=== PATIENT | female | born 1945 | race Caucasian/White ===

== ENCOUNTER 2020-06-08 14:36 | Outpatient (CLI) | payer MEDICARE ==
--- NOTE | 2020-06-09 09:00 | DEXA Report ---
PROCEDURE: Dexa Spine and/or Hip INDICATIONS: POSTMENOPAUSAL TECHNIQUE: Dual energy x-ray absorptiometry (DXA) was performed on a [employer] System. Regions measur ed are the AP Spine, femoral neck, and if needed forearm. COMPARISON: None. FINDINGS: Lumbar Spine: Bone Mineral Density 0.942 g/cm/cm,T score -2.0, osteopenia Left Hip: Bone Mineral Density 0.826 g/cm/cm,T score -1.4, osteopenia Left Femoral Neck: Bone Mineral Density 0.828 g/cm/cm, T score -1.4, osteopenia (T score greater or equal to -1.0: NORMAL) (T score from -1.1 to -2.4: OSTEOPENIA) (T score less than or equal to -2.5 to: OSTEOPOROSIS) Impression: Osteopenia as above most prominent in the lumbar spine. Patients with diagnosis of osteoporosis or osteopenia should have regular bone mineral density assess ment. For those eligible for Medicare, routine testing is allowed once every 2 years. Testing frequ ency can be increased for patients who have rapidly progressing disease or for those who are receivin g medical therapy to restore bone mass. Reviewed by: Clara Dyson MD on 06/08/2020 4:39 PM PDT Approved by: Clara Dyson MD on 06/08/2020 4:39 PM PDT Station ID: [id number]
== END 2020-06-08 14:37 | disposition home or self-care (01) ==
LOC: DI 14:36
PROVIDERS: ATTEND Physician Assistant Medical
DX: M85.89 Other specified disorders of bone density and structure, multiple sites (principal); Z78.0 Asymptomatic menopausal state
CPT/HCPCS: 77080

== ENCOUNTER 2020-11-10 19:56 | Outpatient (CLI) | payer MEDICARE | END 2020-11-10 19:57 | disposition home or self-care (01) | LOC: COV 19:56 | PROVIDERS: ATTEND Ophthalmology | DX: Z01.812 Encounter for preprocedural laboratory examination (principal); Z20.822 Contact with and (suspected) exposure to COVID-19; H25.12 Age-related nuclear cataract, left eye ==

== ENCOUNTER 2020-11-16 09:21 | Day surgery (SDC) | payer MEDICARE ==
[~2020-11-16 09:21] MED LIST: KETOROLAC 0.45% OPHTH DROPS ONE; PHENYLEPHRINE 2.5% OPHTH 2 ML DROPS ONE; PROPARACAINE 0.5% OPHTH DROPS 15 ML ONE
[2020-11-16] MEDS ORDERED: LACTATED RINGERS 500 ML IV ONE (09:53)
[2020-11-16] MEDS ORDERED: MIDAZOLAM 2 MG/2 ML VIAL ONE (10:59)
--- NOTE | 2020-11-16 11:02 | ANESTHESIA ---
Pre-Anesthesia VS, & Labs - Diagnosis L cataract - Procedure L PhacoIOL Vital Signs: Temp Pulse Resp BP Pulse Ox 36.6 C 81 16 135/82 H 100 11/16/20 09:45 11/16/20 09:45 11/16/20 09:45 11/16/20 09:45 11/16/20 09:45 Height: 5 ft 2 in Weight (kg): 79 kg Body Mass Index: 31.8 BMI Classification: Obese - NPO >8 hours - Is Patient ?: No Home Medications and Allergies Home Medications: Ambulatory Orders Dabigatran [Pradaxa] 75 mg PO BID 11/15/20 Dabigatran [Pradaxa] 75 mg PO BID 11/15/20 Allergies/Adverse Reactions: Allergies Allergy/AdvReac Type Severity Reaction Status Date / Time No Known Drug Allergies Allergy Verified 11/15/20 15:51 Anes History & Medical History - Anesthetic History Family history of Anesthesia Complications: Denies Family history of Malignant Hyperthermia: Denies - Medical History Cardiovascular: reports: Atrial fibrillation Pulmonary: reports: None Gastrointestinal: reports: None Urinary: reports: None Musculoskeletal: reports: None Endocrine/Autoimmune: reports: None Skin: reports: Eczema History of Cancer?: No - Surgical History Eyes Ears Nose Throat (EENT): Tonsil/Adenoidectomy Gynecologic: section Orthopedic: Other Exam Mouth Openin Fingerbreadth Mallampati classification: III Thyromental Distance: 4-6 cm Respiratory: Lungs clear Cardiovascular: Other (AFib) Abdomen: Normal bowel sounds Extremities: No clubbing Neurological: Normal gait Mental/Cognitive Status: Alert/Oriented X3 Cognitive Status: Within normal limits Plan Anesthesia Type: MAC Consent for Procedure(s) Verified and Reviewed: Yes Code Status: Attempt Resuscitation ASA classification: 2-Mild systemic disease Is this case an emergency?: No
[2020-11-16] MEDS ORDERED: TIMOLOL 0.5% OPHTH DROPS OPTH ONE (11:10)
[2020-11-16] MEDS ORDERED: CHONDR SULF/HYALURONATE SYRINGE IO ONE (11:10)
[2020-11-16] MEDS ORDERED: BSS/LIDOCAINE/EPINEPHRINE 1 ML SYRINGE IO ONE (11:10)
[2020-11-16] MEDS ORDERED: TRIAMCIN/MOXIFLOX OPHTHALMIC 0.6 ML VIAL IO ONE ×3 (11:10→13:29)
[2020-11-16] MEDS ORDERED: BRIMONIDINE 0.2% OPHTH DROPS 5 ML OPTH ONE (11:10)
[2020-11-16] MEDS ORDERED: EPINEPHrine 1 MG/ML AMP IR ONE (11:10)
[2020-11-16] MEDS ORDERED: PROPARACAINE 0.5% OPHTH DROPS 15 ML EACHEYE ONE (11:11)
[2020-11-16] MEDS ORDERED: VANCOMYCIN OPHTHALMI 8MG/0.8ML 8 MG/0.8 ML SYRINGE IO ONE ×3 (11:11→13:29)
[2020-11-16] MEDS ORDERED: LACTATED RINGERS 450 ML IV ONE (11:20)
[2020-11-16 11:25] VITALS: BP 116/68
--- NOTE | 2020-11-16 11:51 | OPERATIVE REPORT ---
DATE OF SERVICE: 11/16/2020 Physician: Alexis Wang MD PREOPERATIVE DIAGNOSIS: Visually significant cataract, left eye. This was her first cataract surger y. POSTOPERATIVE DIAGNOSIS: Visually significant cataract, left eye. This was her first cataract surge ry. PROCEDURE: Phacoemulsification with posterior chamber intraocular lens implant, left eye. SURGEON: Alexis Wang MD. ANESTHESIA: Monitored anesthesia care. COMPLICATIONS: None. OPERATIVE INDICATIONS: This is a 75-year-old woman with progressive vision loss in the left eye due to 2+ to 3+ nuclear sclerotic cataract. Best corrected visual acuity was 20/30 with glare to hand mo tion vision in the left eye. Indications for surgery are overall decrease in vision, difficulty seei ng words on a computer screen, difficulty reading, difficulty seeing words, closed caption or game sc ores on TV, difficulty seeing street signs, difficulty driving in low light or at night, difficulty d riving at night because of headlights from other vehicles, difficulty with glare or bright lights in any situation. She was consented at length concerning risks and benefits of cataract surgery, after which she expressed a desire to proceed with surgery. OPERATIVE PROCEDURE: The patient was taken in to OR #3 and placed under monitored anesthesia care. A surgical timeout was conducted, confirming correct patient, correct procedure, and correct surgical site. She was given topical anesthesia and prepped and draped in the usual sterile fashion. The ey e was entered at the 6 and 3 o'clock positions. Intracameral Shugarcaine was injected into the anter ior chamber followed by Viscoat. A continuous-tear curvilinear capsulorrhexis was performed. The nu cleus was hydrodissected and phacoemulsified. The cortex was evacuated using automated infusion and aspiration. Provisc was injected in the capsular bag and a 16.0 diopter intraocular lens inserted in to the bag. Infusion and aspiration were used to evacuate the viscoelastic materials. The eye was i nflated to physiologic pressure using balanced salt solution and found to be watertight. Approximate ly 0.25 mL of a mixture of triamcinolone and moxifloxacin was injected transsclerally into the vitreo us in the inferotemporal quadrant. An additional 0.55 mL of a mixture of triamcinolone, moxifloxacin , and vancomycin was injected subconjunctivally in the superior quadrant for infection and inflammati on prophylaxis. Wound integrity was checked with Weck-Verónica sponges. The patient was taken from the o perating room in good condition and given postoperative instructions. TD: 11/16/2020 11:31
[2020-11-16] MEDS ORDERED: BRIMONIDINE 0.2% OPHTH DROPS 5 ML ONE ×2 (13:28→13:29)
[2020-11-16] MEDS ORDERED: BSS/LIDOCAINE/EPINEPHRINE 1 ML SYRINGE ONE ×2 (13:28→13:29)
[2020-11-16] MEDS ORDERED: TIMOLOL 0.5% OPHTH DROPS ONE ×2 (13:28→13:29)
[2020-11-16] MEDS ORDERED: EPINEPHrine 1 MG/ML AMP ONE ×2 (13:28→13:29)
== END 2020-11-16 09:22 | disposition home or self-care (01) ==
LOC: SDS 09:21
PROVIDERS: ATTEND Ophthalmology
DX: H25.12 Age-related nuclear cataract, left eye (principal); I48.91 Unspecified atrial fibrillation; E66.9 Obesity, unspecified; Z68.31 Body mass index [BMI] 31.0-31.9, adult; Z86.73 Personal history of transient ischemic attack (TIA), and cerebral infarction without residual deficits
CPT/HCPCS: 66984; A9270; J3490; J7120; V2632

== ENCOUNTER 2020-11-17 23:25 | Emergency (ER) | payer MEDICARE ==
[2020-11-17] MEDS ORDERED: CEPHALEXIN 250 MG Prepack 8 CAP BOTTLE PO STA (23:54)
[2020-11-17] MEDS ORDERED: cephALEXin 250 MG CAPSULE PO STA (23:54)
--- NOTE | 2020-11-17 23:56 | ED Physician Documentation ---
History of Present Illness - Stated complaint Stated Complaint: FACIAL REDNESS - Chief complaint Chief Complaint: Heent - History obtained from History obtained from: Patient - History of Present Illness Timing: Today - Additonal information Additional information: 75-year-old female has had a cataract operation done yesterday the operation went well this morning she had a bit of a film over her eyes she was able to see after that has some improvement in her vision. She is noted this evening that she has some redness to the left side of her face where the operation was done and there is a bit of swelling associated with this and she is concerned about a possible infection. I did note from the surgeon's notes that she was given an injection of moxifloxacin and vancomycin during the procedure. Review of Systems Constitutional: denies: Fever Eyes: denies: Loss of vision, Decreased vision, Discharge, Irritation Ears: denies: Ear pain Nose: denies: Congestion Throat: denies: Sore throat Respiratory: denies: Dyspnea, Cough GI: denies: Nausea, Vomiting : denies: Dysuria, Frequency PD PAST MEDICAL HISTORY - Present Medications Home Medications: Ambulatory Orders Medication Instructions Recorded Confirmed Dabigatran [Pradaxa] 75 mg PO BID 11/15/20 11/16/20 cephALEXin [Keflex] 500 mg PO Q6H #28 capsule 11/18/20 - Allergies Allergies/Adverse Reactions: Allergies Allergy/AdvReac Type Severity Reaction Status Date / Time No Known Drug Allergies Allergy Verified 11/15/20 15:51 PD ED PE NORMAL - Vitals Vital signs reviewed: Yes (hypertensive ) - General General: Alert and oriented X 3, No acute distress, Well developed/nourished - HEENT HEENT: Atraumatic, PERRL, EOMI, Other (There is erythema and swelling from the nasal bridge to just above the nasal labial fold on the left side the swelling and redness extends across the cheek and is mild there is some slight lichenification of the skin overlying the erythema. The inflammation appears as a superficial infection. ) - Neck Neck: Supple, no meningeal sign, No bony TTP - Respiratory Respiratory: No respiratory distress - Derm Derm: Normal color, Warm and dry - Extremities Extremities: No deformity, No edema - Neuro Neuro: Alert and oriented X 3, cuff knitter 2-12 intact, No motor deficit, No sensory deficit, Normal speech Eye Opening: Spontaneous Motor: Obeys Commands Verbal: Oriented GCS Score: 15 - Psych Psych: Normal mood, Normal affect PD ED PE EXPANDED - Eyes Eyes: Other (There is not excessive swelling to the eyelid and the sclera itself appears unaffected.) Results - Vitals Vitals: Vital Signs - 24 hr 11/17/20 23:36 Temperature 36.3 C L Heart Rate 87 Respiratory 19 Rate Blood Pressure 141/85 H O2 Saturation 98 Oxygen O2 Source Room air PD MEDICAL DECISION MAKING - ED course Complexity details: reviewed old records, re-evaluated patient, considered differential, d/w patient ED course: 75-year-old previously well female has developed some swelling and redness to the left side of her face where she has had a procedure done yesterday. The area of the procedure itself does not appear inflamed or infected her face appears mildly inflamed or infected and we have elected to treat with oral Keflex. I was unable to contact the surgeon after hours and I have asked the patient to follow-up by telephone tomorrow. Departure - Departure Disposition: 01 Home, Self Care Clinical Impression: Facial cellulitis Condition: Stable Instructions: ED Cellulitis Facial Follow-Up: Dorita Mittal PA-C [Primary Care Provider] - Alexis Wang MD [Provider Admit Priv/Credential] - Prescriptions: cephALEXin [Keflex] 500 mg PO Q6H #28 capsule
[2020-11-18 00:11] VITALS: BP 138/83
== END 2020-11-18 00:11 | disposition home or self-care (01) ==
LOC: ED 23:25
DX: L03.211 Cellulitis of face (principal); Z98.49 Cataract extraction status, unspecified eye
CPT/HCPCS: 99282; 99284; A9270

== ENCOUNTER 2021-01-08 16:40 | Outpatient (CLI) | payer MEDICARE | END 2021-01-08 16:41 | disposition home or self-care (01) | LOC: COV 16:40 | PROVIDERS: ATTEND Ophthalmology | DX: Z01.812 Encounter for preprocedural laboratory examination (principal); H25.11 Age-related nuclear cataract, right eye; Z20.822 Contact with and (suspected) exposure to COVID-19 ==

== ENCOUNTER 2021-01-11 09:12 | Day surgery (SDC) | payer MEDICARE ==
[2021-01-11] MEDS ORDERED: LACTATED RINGERS 500 ML IV ONE ×2 (09:22→10:18)
[2021-01-11] MEDS ORDERED: CYCLOPENTOLATE 2% OPHTH DROPS 2 ML RIGHTEYE ONE (09:23)
[2021-01-11] MEDS ORDERED: MIDAZOLAM 2 MG/2 ML VIAL ONE (09:54)
--- NOTE | 2021-01-11 09:57 | ANESTHESIA ---
Pre-Anesthesia VS, & Labs - Diagnosis right eye cataract - Procedure right eye cataract extraction with IOL implant Vital Signs: Temp Pulse Resp BP Pulse Ox 36.6 C 82 12 134/87 H 97 01/11/21 09:49 01/11/21 09:49 01/11/21 09:49 01/11/21 09:49 01/11/21 09:49 Height: 5 ft 3 in Weight (kg): 77.9 kg Body Mass Index: 30.4 BMI Classification: Obese - NPO >8 hours - Is Patient ?: No Home Medications and Allergies Home Medications: Ambulatory Orders Rosuvastatin Calcium [Crestor] 2.5 mg PO DAILY 01/10/21 Dabigatran [Pradaxa] 75 mg PO BID 11/15/20 Rosuvastatin Calcium [Crestor] 2.5 mg PO DAILY 01/10/21 Allergies/Adverse Reactions: Allergies Allergy/AdvReac Type Severity Reaction Status Date / Time No Known Drug Allergies Allergy Verified 01/10/21 14:11 Anes History & Medical History - Anesthetic History Anesthesia Complications: reports: No previous complications - Medical History Cardiovascular: reports: High cholesterol, Atrial fibrillation Pulmonary: reports: Asthma Gastrointestinal: reports: Colon polyps, Diverticulitis Urinary: reports: None Neuro: reports: None Musculoskeletal: reports: None Endocrine/Autoimmune: reports: None Blood Disorders: reports: None Skin: reports: Eczema Psychosocial: reports: No issues indicated History of Cancer?: No - Surgical History Eyes Ears Nose Throat (EENT): reports: Tonsil/Adenoidectomy Gynecologic: reports: section Orthopedic: reports: Other Exam General: Alert, Oriented x3, Cooperative, No acute distress Dental: WNL Mouth Openin Fingerbreadth Neck Mobility: Normal Mallampati classification: II Mental/Cognitive Status: Alert/Oriented X3, Normal for patient Plan Anesthesia Type: MAC Consent for Procedure(s) Verified and Reviewed: Yes Code Status: Attempt Resuscitation ASA classification: 2-Mild systemic disease Is this case an emergency?: No
[2021-01-11] MEDS ORDERED: VANCOMYCIN OPHTHALMI 8MG/0.8ML 8 MG/0.8 ML SYRINGE IO ONE ×2 (09:59→10:07)
[2021-01-11] MEDS ORDERED: BRIMONIDINE 0.2% OPHTH DROPS 5 ML ONE (09:59)
[2021-01-11] MEDS ORDERED: TRIAMCIN/MOXIFLOX OPHTHALMIC 0.6 ML VIAL IO ONE ×2 (09:59→10:07)
[2021-01-11] MEDS ORDERED: TIMOLOL 0.5% OPHTH DROPS ONE (09:59)
[2021-01-11] MEDS ORDERED: CHONDR SULF/HYALURONATE SYRINGE IO ONE (10:06)
[2021-01-11] MEDS ORDERED: BRIMONIDINE 0.2% OPHTH DROPS 5 ML OPTH ONE (10:06)
[2021-01-11] MEDS ORDERED: EPINEPHrine 1 MG/ML AMP IR ONE (10:06)
[2021-01-11] MEDS ORDERED: PROPARACAINE 0.5% OPHTH DROPS 15 ML EACHEYE ONE (10:07)
[2021-01-11] MEDS ORDERED: BSS/LIDOCAINE/EPINEPHRINE 1 ML SYRINGE IO ONE (10:07)
[2021-01-11] MEDS ORDERED: TIMOLOL 0.5% OPHTH DROPS OPTH ONE (10:07)
[2021-01-11 10:31] VITALS: BP 111/67
--- NOTE | 2021-01-11 10:36 | OPERATIVE REPORT ---
DATE OF SERVICE: 01/11/2021 Physician: Alexis Wang MD PREOPERATIVE DIAGNOSIS: Visually significant cataract, right eye. Cataract surgery was performed on the left eye on 11/16/2020. POSTOPERATIVE DIAGNOSIS: Visually significant cataract, right eye. Cataract surgery was performed o n the left eye on 11/16/2020. PROCEDURE PERFORMED: Phacoemulsification with posterior chamber intraocular lens implant, right eye. SURGEON: Alexis Wang MD. ANESTHESIA: Monitored anesthesia care. COMPLICATIONS: None. OPERATIVE INDICATIONS: This is a 75-year-old woman with progressive vision loss in the right eye due to 2+ to 3+ nuclear sclerotic cataract. Best corrected visual acuity was 20/40 with glare to 20/150 in the right eye. Indications for surgery were overall decrease in vision, difficulty seeing words on a computer screen, difficulty reading, difficulty seeing words, closed caption or game scores on T V, difficulty seeing street signs, difficulty driving in low light or at night, difficulty driving at night because of headlights from other vehicles, and difficulty with glare or bright lights in any s ituation. She was consented at length concerning the risks and benefits of cataract surgery, after w [facility] she expressed a desire to proceed with surgery. OPERATIVE PROCEDURE: The patient was taken into OR #3 and placed under monitored anesthesia care. A surgical timeout was conducted, confirming correct patient, correct procedure, and correct surgical site. She was given topical anesthesia and prepped and draped in usual sterile fashion. The eye was entered at the 12 and 9 o'clock positions. Intracameral Shugarcaine was injected into the anterior chamber followed by Viscoat. A continuous-tear curvilinear capsulorrhexis was performed. The nucleu s was hydrodissected and phacoemulsified. The cortex was evacuated using automated infusion and aspi ration. Provisc was injected in the capsular bag, and an 18.0 diopter lens was inserted into the bag . Infusion and aspiration were used to evacuate the viscoelastic materials. The eye was inflated to physiologic pressure using balanced salt solution and found to be watertight. Approximately 0.25 mL of a mixture of triamcinolone and moxifloxacin was injected transsclerally into the vitreous in the inferotemporal quadrant. An additional 0.55 mL of a mixture of triamcinolone, moxifloxacin, and vanc omycin was injected subconjunctivally in the superior quadrant for infection and inflammation prophyl axis. Wound integrity was checked with Weck-Verónica sponges. The patient was taken from the operating r oom in good condition and given postoperative instructions. TD: 01/11/2021 10:28
--- NOTE | 2021-01-11 10:43 | ANESTHESIA POST OP EVALUATION ---
Anesthesia Post Eval - Post Anesthesia Eval Vitals: Last Vital Signs Temp 36.6 C 01/11/21 10:30 Pulse 103 H 01/11/21 10:30 Resp 19 01/11/21 10:30 BP 111/67 01/11/21 10:30 Pulse Ox 98 01/11/21 10:30 CV Function Including HR & BP: positive: Stable Pain Control: positive: Satisfactory Nausea & Vomiting: positive: Negative Mental Status: positive: Baseline Respiratory Status: Airway Patent Hydration Status: Satisfactory Anesthesia Complications: positive: None
== END 2021-01-11 09:13 | disposition home or self-care (01) ==
LOC: SDS 09:12
PROVIDERS: ATTEND Ophthalmology
DX: H25.11 Age-related nuclear cataract, right eye (principal); I48.91 Unspecified atrial fibrillation; J45.909 Unspecified asthma, uncomplicated; Z79.01 Long term (current) use of anticoagulants; Z98.42 Cataract extraction status, left eye; Z86.73 Personal history of transient ischemic attack (TIA), and cerebral infarction without residual deficits; E66.9 Obesity, unspecified; Z68.30 Body mass index [BMI] 30.0-30.9, adult
CPT/HCPCS: 66984; A9270; J3490; J7120; V2632

== ENCOUNTER 2023-07-25 13:10 | Outpatient (CLI) | payer MEDICARE ==
[2023-07-25] MEDS ORDERED: iohexoL-300 100 ML VIAL IVP ONE (19:05)
--- NOTE | 2023-08-04 08:39 | CT Report ---
PROCEDURE: CHEST W INDICATIONS: LUNG NODULE CONTRAST: 100ml omni 200 TECHNIQUE: After the administration of intravenous contrast, 1 mm axial images were acquired from the pulmonary apices through the posterior costophrenic angles. Axial 5 mm soft tissue kernel reconstructions were performed as well as 8 mm axial MIP and coronal and sagittal 5 mm reformations. For radiation dose reduction, the following was used: automated exposure control, adjustment of mA and/or kV according to patient size. COMPARISON: None available at time of dictation. FINDINGS: Image quality: Excellent. Lungs and pleura: No consolidation. No pleural effusions. No pneumothorax. 3 mm solid nodule, right middle lobe (series 3, image 168). Pleural parenchymal bands in the lung bases. Mediastinum: Heart size is normal. No pericardial effusion. No large vessel abnormality. No mediastin al adenopathy by size criteria. Chest wall and lower neck: No thyroid nodule which requires sonographic follow up. No axillary or sup raclavicular adenopathy by size. Bones: No aggressive osseous abnormality. Upper Abdomen: Fluid attenuating left renal cyst. IMPRESSION: Note: No comparisons at time of dictation. If one becomes available, an addendum can be made to this report. 3 mm solid nodule in the right middle lobe. Consider 12 month follow-up if this patient is at high ri sk for developing lung cancer, per Fleischner Society guidelines. Reviewed by: Ralph Sung on 08/04/2023 8:38 AM PDT Approved by: Ralph Sung on 08/04/2023 8:38 AM PDT Station ID: [id number]
== END 2023-07-25 13:11 | disposition home or self-care (01) ==
LOC: DI 13:10
PROVIDERS: ATTEND Internal Medicine
DX: R91.1 Solitary pulmonary nodule (principal)
CPT/HCPCS: 71260; Q9967